=== PATIENT | female | born 1940 | race Caucasian/White ===

== ENCOUNTER 2017-04-29 21:57 | Emergency (ER) | payer OTHER ==
[2017-04-29] MEDS ORDERED: HEPARIN SODIUM 5000 U/ML SOL ONE (23:45)
[2017-04-29] MEDS: SODIUM CHLORIDE 0.9% FLUSH 10 ML SOL IV PRN (23:57)
[2017-04-30] MEDS: HEPARIN SODIUM 5000 U/ML SOL IV ONE
[2017-04-30] MEDS ORDERED: HEPARIN SODIUM 5000 U/ML SOL ONE (00:13)
[2017-04-30 00:17] LABS: POTASSIUM 3.3 mMol/L (3.5-5.1)
[2017-04-30 00:24] LABS: HEMATOCRIT 36 % (35-47); MEAN CORPUSCULAR HGB CONC 35.7 gm/dl (32.0-36.0); MEAN CORPUSCULAR VOLUME 87 fL (81-99)
[2017-04-30] MEDS: HEPARIN SODIUM 5000 U/ML 25,000 U in DEXTROSE 250 ML 250 ML IV PRN (00:27)
[2017-04-30 00:34] LABS: BASOPHILS % (MANUAL) 0 % (0-3); EOSINOPHILS % (MANUAL) 0 % (0-9); LYMPHOCYTES % (MANUAL) 10 % (10-50); NORMAL RBCS PRESENT
[2017-04-30 00:35] VITALS: RESP 28; TEMP 97.9
[2017-04-30] MEDS ORDERED: POTASSIUM CHLORIDE 10 MEQ TER ONE (00:53)
[2017-04-30] MEDS: POTASSIUM CHLORIDE 10 MEQ TER PO ONE (00:55)
[2017-04-30 01:09] LABS: APPEARANCE,URINE Clear; BILIRUBIN,URINE NEGATIVE (NEGATIVE); COLOR,URINE Yellow; GLUCOSE, URINE (UA) NEGATIVE (NEGATIVE); KETONES,URINE NEGATIVE (NEGATIVE); LEUKOCYTE ESTERASE ,URINE NEGATIVE (NEGATIVE); NITRATE,URINE NEGATIVE (NEGATIVE); OCCULT BLOOD,URINE NEGATIVE (NEG-TRACE); PH,URINE 5.5; UROBILINOGEN,URINE 0.2 (0.2-1.0 EU)
[2017-04-30] MEDS ORDERED: HYDROMORPHONE 1 MG/ML SYRINGE ONE (01:17)
[2017-04-30 01:20] LABS: RBC,URINE 0-1 (0-3AV/HPF); WBC,URINE 0-1 (0-5AV/HPF)
[2017-04-30] MEDS: HYDROMORPHONE 1 MG/ML SYRINGE IV ONE (01:20)
[2017-04-30 01:47] VITALS: PULSE 99
[2017-04-30 01:49] VITALS: BP 171/86; O2SAT 95
== END 2017-04-30 01:20 | disposition short-term general hospital (02) | DRG 566 ==
LOC: ED 21:57
DX: T79.6XXA Traumatic ischemia of muscle, initial encounter (principal); M25.561 Pain in right knee; M79.651 Pain in right thigh; M25.571 Pain in right ankle and joints of right foot
CPT/HCPCS: 80048; 81001; 82962; 85007; 85027; 85610; 85730; 99285; J1644; A9270-GY; J1170